=== PATIENT | male | born 1980 | race Asian ===

== ENCOUNTER 2025-01-16 06:24 | Day surgery (SDC) | payer OTHER, SELFPAY ==
[2025-01-16] VITALS (8 sets, daily range): BP systolic 117–139; BP diastolic 75–88; BMI 24.8
--- NOTE | 2025-01-16 07:57 | HP.FOC2 ---
Focused History & Physical
Chief Complaint
HPI:
Chief Complaint: Right inguinal hernia
HPI / Indication for Planned Procedure: Patient is a 45-year-old male recently seen in outpatient surgical evaluation after having taken note of swelling and discomfort in the right inguinal region this past summer. Symptoms are exacerbated by full
bladder, at times with moving bowels and exertional activity/exercise. No significant pain. Swelling reduces spontaneously while lying down. No associated GI or symptoms. No symptoms suggestive of intermittent incarceration or obstruction.
Outpatient evaluation for the presence of a reducible right inguinal hernia for which he presents today for operative correction.
Relevant Past Medical History: Other (Seasonal allergies, diabetes)
Relevant Social History: Negative
Relevant Family History: Negative
Relevant Past Surgical History: Positive for (Multiple oral surgeries)
Review of Systems
Review of Pertinent Systems: All Systems Negative
Medication
See Medication form for detailed medications: Yes
Medication List (including Herbals & OTC):
ascorbic acid (vitamin C) 500 mg capsule,extended release 500 mg PO PRN PRN colds/illness 01/10/25
cetirizine 10 mg tablet (Zyrtec) 10 mg PO DAILY PRN seasonal for allergies 01/10/25
metformin 1,000 mg tablet 1,000 mg PO BID 01/10/25
montelukast 10 mg tablet 10 mg PO HS PRN seasonal for allergies 01/10/25
pravastatin 20 mg tablet 20 mg PO HS 01/10/25
Medications Reviewed: Yes
Allergies and Reactions
Patient has Allergies: Yes
Noted Allergies and Reactions:
Allergy/AdvReac Type Severity Reaction Status Date / Time
No Known Allergies Allergy Verified 01/10/25 08:46
Pertinent Physical Exam
All Other Systems: Negative
Head/Neck: Normal
Lungs: Normal
Heart: Normal
Abdomen: Other (Reducible right inguinal hernia)
Extremities: Normal
Neurological: Normal
Diagnosis / Assessment
45-year-old male presenting for scheduled operative correction symptomatic right inguinal hernia
Plan / Procedure
Robotic assisted laparoscopic repair of right inguinal hernia with mesh
Anesthesia/Sedation to be done by Anesthesia Provider: Yes
[2025-01-16] MEDS: TYLENOL 1000 MG PO (09:28)
[2025-01-16] MEDS: NORMOSOL-R/PLASMALYTE-A 1000 IV (09:28)
[2025-01-16 09:29] LABS: Glucose - Point of Care 168 mg/dl (70-99)
--- NOTE | 2025-01-16 10:53 | W.SUR.PREOP ---
Pre-Operative Surgical Note
-
I have examined this patient prior to the performance of the scheduled procedure.
The patient's condition is unchanged from the time of the current History and
Physical and the patient is able to undergo the scheduled procedure.
[2025-01-16 11:15] LABS: Glucose - Point of Care 150 mg/dl (70-99)
--- NOTE | 2025-01-16 12:54 | W.IMMPOSTOP ---
Surgical Immed Post Op Note
-
Primary Surgeon: Jayce Murphy MD
Assisting Surgeon: Nichole Villegas PA-C
Pre-op Diagnosis: Right inguinal hernia
Post-op Diagnosis: Right inguinal hernia, direct
Procedure Performed: Robotic assisted laparoscopic HERB repair right inguinal hernia with mesh; 3D max large mid weight
Anesthesia Type: GETA +0.25% Marcaine
Specimen / Cultures: None
Estimated Blood Loss: 4 mL
Complications: None immediate
Operative Findings: Right direct inguinal hernia, indirect and femoral space normal. Transabdominal preperitoneal repair. No significant lipoma associated with spermatic cord identified. 3D max large mid weight mesh repair secured to Jayjay's
ligament with interrupted 2-0 Vicryl suture x 2. Pseudosac also reduced and secured to Jayjay's ligament with interrupted 2-0 Vicryl suture. Peritoneal flap closed with 2-0 Monocryl STRATAFIX spiral.
The assistance of Nichole Villegas PA-C was required due to the complexity of the procedure. During the procedure Nichole Villegas PA-C assisted with port placement, robotic instrumentation and suture material exchanges, and closure of the surgical incision
sites. I was present for the entirety of the operative procedure.
--- NOTE | 2025-01-16 13:09 | OR.RPT ---
Operative Report
Operative Report
Date of operative procedure: 01/16/2025
Primary Surgeon: Jayce Murphy MD
Assisting Surgeon: Nichole Villegas PA-C
Pre-op Diagnosis: Right inguinal hernia
Post-op Diagnosis: Right inguinal hernia, direct
Procedure Performed: Robotic assisted laparoscopic HERB repair right inguinal hernia with mesh; 3D max large mid weight
Anesthesia Type: GETA +0.25% Marcaine
Specimen / Cultures: None/none
Estimated Blood Loss: 4 mL
Complications: None immediate
Indications for operative procedure: Patient is a 45-year-old male recently seen in outpatient surgical evaluation after having taken note of swelling and discomfort in the right inguinal region this past summer. Symptoms are exacerbated by full
bladder, at times with moving bowels and exertional activity/exercise. No significant pain. Swelling reduces spontaneously while lying down. No associated GI or symptoms. No symptoms suggestive of intermittent incarceration or obstruction.
Outpatient evaluation for the presence of a reducible right inguinal hernia for which he presents today for operative correction.
Brief summary of operative Findings: Right direct inguinal hernia. The indirect and femoral locations were normal. Transabdominal preperitoneal repair. No significant lipoma associated with the right spermatic cord identified. 3D max large mid
weight mesh repair, secured to Jayjay's ligament with interrupted 2-0 Vicryl suture x 2. Pseudosac also reduced and secured to Jayjay's ligament with a single interrupted 2-0 Vicryl suture. Peritoneal flap closed with 2-0 Monocryl STRATAFIX spiral.
Operation detail: The patient was identified in the preoperative holding area. I confirmed the surgical site and side with the patient preoperatively which was then marked and initialed by myself. He was interviewed by the anesthesia and nursing
staff then brought back to the operating room. The patient was placed on the operating table in supine position. The bilateral upper extremities were carefully padded and tucked at the side utilizing the arm guard positioning system. Pneumatic
compression boots were on the bilateral lower extremities. Following induction of general endotracheal anesthesia the patient was administered Ancef 2 g IV for prophylactic antibiotic coverage. The patient's anterior abdominal wall was now widely
and sterilely prepped with ChloraPrep and then draped in the usual manner. The surgical timeout was completed and the procedure was confirmed.
I initially proceeded with Veress needle insufflation in the left subcostal midclavicular line location. Once insufflated to 12 mmHg pressure then a left midclavicular line 8 mm trocar was then placed. The robotic scope was inserted, there was no
evidence of iatrogenic injury from access. The Veress needle was withdrawn. An epigastric 8 mm trocar was placed just to the right off of the midline. A right midclavicular line 8 mm trocar was placed. The patient was then transition into
Trendelenburg to expose the inguinal/pelvic space and the robot was docked.
At the surgeon console inspection of the pelvis confirmed the presence of a right direct inguinal hernia. There were no additional incidental intra-abdominal findings.
I initially began with creation of a peritoneal flap at the level of the right ASIS to the right medial umbilical ligament. The preperitoneal plane was now established along the length of the flap and developed inferiorly down to the inguinal
space. The medial dissection proceeded until the notch of the pubic symphysis was exposed at the midline followed by Jayjay's ligament on the right side. The herniated preperitoneal fat and peritoneum were completely reduced off of the pseudosac
of the direct inguinal hernia. Next Jayjay's ligament on the right side was now cleared through the femoral space. The underside of Jayjay's ligament was exposed as well. The peritoneal flap was now mobilized laterally down to the internal ring.
Peritoneum was now carefully mobilized at the level of the internal ring off of the right spermatic cord and contents. The peritoneal dissection continued back proximally past the turn in the right vas deferens and then overlying the right iliac
space to meet up with the medial dissection. The posterior dissection continued until there was wide separation between the vas and the spermatic cord vessels. The dissection continued posterior laterally for full exposure of the myopectineal
orifice. The right spermatic cord was further evaluated and there was no lipomatous tissue associated with the cord structures.
With the myopectineal orifice now completely exposed hemostasis was confirmed. A 3D max large mid weight mesh was utilized for repair. The mesh was positioned parallel to the ileopubic tract. It was secured at 2 separate locations inferior
medially on Jayjay's ligament with 2 simple interrupted 2-0 Vicryl sutures. The attenuated transversalis fascia was also reduced to Jayjay's ligament with a single 2-0 Vicryl stitch. The patient was now begun to be taken out of Trendelenburg to
confirm that the posterior aspect of the mesh was lying flat and that there was no shelling or undermining of the mesh by the peritoneal edge. The peritoneal flap was now closed with a 2-0 Monocryl STRATAFIX spiral suture with a running [place]
type stitch.
A flexible suction catheter was placed through an 8 mm trocar and introduced into the peritoneal flap to evacuate the air out of the preperitoneal space. This again confirmed good positioning of the inguinal hernia mesh. There was no shelling or
folding of the mesh and no undermining and mesh by the peritoneal edge. The peritoneal covering of the mesh was completely intact.
At this point the robot was undocked. All sponge instrument and needle counts were confirmed to be correct x 2. The CO2 insufflation was now carefully evacuated out of the abdominal cavity. The trocar sites were removed as well as the flexible
suction catheter. Skin was closed with 4-0 Monocryl. Sterile surgical glue dressings were applied. The patient tolerated the procedure well and was transferred to the recovery unit for routine postoperative monitoring.
The assistance of Nichole Villegas PA-C was required due to complexity of surgery. During the procedure Nichole Villegas PA-C assisted with port placement, robotic instrumentation and suture material exchanges as well as closure of the surgical sites. I
was present for the entirety of the operative procedure.
[2025-01-16] MEDS: SUBLIMAZE 25 MCG IV (13:14)
[2025-01-16 13:21] LABS: Glucose - Point of Care 199 mg/dl (70-99)
[2025-01-16] MEDS: NOVOLOG vial 1 UNITS SC (13:25)
== END 2025-01-16 14:55 | disposition home or self-care (01) ==
LOC: SDS 06:24
PROVIDERS: ATTENDING PHYSICIAN Surgery
DX: K40.90 Unilateral inguinal hernia, without obstruction or gangrene, not specified as recurrent (principal)
CPT/HCPCS: 49650; 82962; C1781

== ENCOUNTER → 2025-05-05 09:22 | Outpatient (REF) | payer SELFPAY | LOC: HWRAD 09:22 | PROVIDERS: ATTENDING PHYSICIAN Internal Medicine | DX: E78.00 Pure hypercholesterolemia, unspecified (principal) | CPT/HCPCS: 75571 ==